=== PATIENT | male | born 1965 | race African-American/Black ===

== ENCOUNTER 2023-12-15 20:02 | Emergency (ER) | payer SELFPAY ==
[~2023-12-15] VITALS: Ht 177.8 cm; Wt 65.0 kg
[2023-12-15 20:08] VITALS: TEMP 97.8; O2SAT 96
[2023-12-15] MEDS ORDERED: LIDOCAINE HCL 1% 20ML VIAL INFIL ONE (20:30)
[2023-12-15] MEDS: AMOXICILLIN/POTASSIUM CLAVULANATE 875/125MG TAB PO ONE (20:40)
[2023-12-15] MEDS ORDERED: AMOX1TAB16 MT (22:09)
[2023-12-15] MEDS ORDERED: IBUP-2029 MT (22:09)
[2023-12-15] MEDS: TETANUS, DIPHTHERIA, PERTUSSIS VAC/PF 0.5ML (>10YR OLD) IM ONE (22:28)
[2023-12-15 22:35] VITALS: BP 123/73; PULSE 94; RESP 15
== END 2023-12-15 22:38 | disposition home or self-care (01) ==
LOC: ER 20:02
DX: S61.216A Laceration without foreign body of right little finger without damage to nail, initial encounter (principal); W54.0XXA Bitten by dog, initial encounter; Y93.89 Activity, other specified; Y92.89 Other specified places as the place of occurrence of the external cause; Y99.8 Other external cause status
CPT/HCPCS: 73140; 90715; 12001; 90471; 99283; J3490; Z7610 ×2

== ENCOUNTER 2024-04-29 09:20 | Emergency (ER) | payer MEDICAID ==
[~2024-04-29] VITALS: Ht 177.8 cm; Wt 81.0 kg
[~2024-04-29 09:20] MED LIST: AMOX1TAB16 MT; IBUP-2029 MT
[2024-04-29 09:24] VITALS: O2SAT 99
[2024-04-29] MEDS: CHLORDIAZEPOXIDE 25MG CAPSULE PO ONE (11:04)
[2024-04-29 13:29] VITALS: BP 125/65; PULSE 74; RESP 15; TEMP 36.66960; O2SAT 99
== END 2024-04-29 13:30 | disposition home or self-care (01) ==
LOC: ER 09:20
DX: F10.939 Alcohol use, unspecified with withdrawal, unspecified (principal); F41.9 Anxiety disorder, unspecified
CPT/HCPCS: 82962; 99285